=== PATIENT | male | born 1960 | race Caucasian/White ===

== ENCOUNTER 2018-04-13 16:52 | Emergency (ER) | payer BC ==
[2018-04-13] MEDS ORDERED: TETANUS/DIPHTHERIA/PERTUSSIS 0.5 ML SYRINGE IM ONE (16:57)
--- NOTE | 2018-04-13 16:58 | ED Physician Documentation ---
PD HPI UPPER EXT INJURY - Stated complaint Stated Complaint: FINGER INJ - History obtained from History obtained from: Patient - History of Present Illness Location: Right (Right-handed gentleman with unclear tetanus status dropped a log in his right middle finger at home just prior to arrival and has a laceration. No other inj) Review of Systems Constitutional: reports: Reviewed and negative Ears: reports: Reviewed and negative Throat: reports: Reviewed and negative PD PAST MEDICAL HISTORY - Present Medications Home Medications: Ambulatory Orders Medication Instructions Recorded Confirmed No Known Home Medications 04/13/18 04/13/18 - Allergies Allergies/Adverse Reactions: Allergies Allergy/AdvReac Type Severity Reaction Status Date / Time aspirin Allergy Hives Verified 04/13/18 17:04 NSAIDS (Non-Steroidal Allergy Hives Verified 04/13/18 17:04 Anti-Inflamma PD ED PE NORMAL - Vitals Vital signs reviewed: Yes - General General: Alert and oriented X 3, No acute distress - Extremities Extremities: Other (On the palmar surface of the middle finger pulp there is kind of a complicated stellate but shallow laceration.) - Neuro Neuro: Alert and oriented X 3, Normal speech Results - Vitals Vitals: Vital Signs - 24 hr 04/13/18 16:58 Temperature 36.9 C Heart Rate 84 Respiratory 16 Rate Blood Pressure 136/89 H O2 Saturation 99 Oxygen O2 Source Room air Procedures - Laceration (location) R 3rd finger Length in cm: 2 Wound type: Curved, Stellate, Irregular, Into subcut fat Neurovascular status: Sensory intact, Motor intact Anesthesia: Lidocaine 1% (with bicarb, digital block) Wound Preparation: Hibiclens, Irrigated copiously NS, Debrided extensively, Wound explored, FB identified (lots of grit, sharply debrided) Skin layer closure: Nylon, Interrupted, Size #-0 - enter number (5-0), Sutures - enter # (11) Other: Patient tolerated well, Tetanus booster given Complexity: Intermediate Departure - Departure Disposition: 01 Home, Self Care Clinical Impression: Finger laceration Qualifiers: Encounter type: initial encounter Finger: middle finger Damage to nail status: without damage Foreign body presence: without foreign body Laterality: right Qualified Code(s): S61.212A - Laceration without foreign body of right middle finger without damage to nail, initial encounter Condition: Good Record reviewed to determine appropriate education?: Yes Instructions: ED Laceration Hand Comments: Come back for any signs of infection which would include: Redness, swelling, drainage, increased pain, or fevers. Follow-up with your physician in 10-14 days for suture removal. Your blood pressure was elevated today on check into the emergency department. This does not mean that you have hypertension, it is a common phenomenon to come to the emergency department and have elevated blood pressure. I recommend that you see your primary care physician within the week to have it rechecked when you are feeling better.
[2018-04-13] MEDS ORDERED: BUFFERED LIDOCAINE 10 ML SYRINGE ONE (16:59)
[2018-04-13 17:56] VITALS: BP 127/87
== END 2018-04-13 17:54 | disposition home or self-care (01) ==
LOC: ED 16:52
DX: S61.222A Laceration with foreign body of right middle finger without damage to nail, initial encounter (principal); W20.8XXA Other cause of strike by thrown, projected or falling object, initial encounter; Y92.009 Unspecified place in unspecified non-institutional (private) residence as the place of occurrence of the external cause; Z23 Encounter for immunization; R03.0 Elevated blood-pressure reading, without diagnosis of hypertension
CPT/HCPCS: 12031; 90471; 99282